=== PATIENT | female | born 1965 | race Caucasian/White ===

== ENCOUNTER 2016-04-28 14:38 | Emergency (ER) | payer OTHER ==
--- NOTE | 2016-04-28 15:26 | REP ---
RIGHT KNEE: Five views. HISTORY: Trauma. FINDINGS: Five views of the right knee demonstrate normal bones, joints, and soft tissues. No fracture or subluxation is seen. IMPRESSION: Negative right knee series. Signed by Eduardo Osborn MD 04/28/2016 04:01 P
[2016-04-28] MEDS ORDERED: NORCO, ANEXSIA 5/325MG TABLET (HYDROcodone/ACETAMINOPHEN) As Ordered ONE (16:38)
--- NOTE | 2016-04-28 16:43 | EDDOCDS ---
Physician Documentation [facility] Name: Lyndsay Landeros Age: 51 yrs Sex: Female : 1965 Arrival Date: 04/28/2016 Time: 14:38 Bed I7 / 29 Private MD: Ada Jay N. Disposition: 04/28/16 16:27 Discharged to Home/Self Care. Impression: Pain in right knee - Medial aspect, suspect medial meniscus vs MCL injury. - Condition is Stable. - Discharge Instructions: Knee Pain. - Prescriptions for [place] 5- 325 mg Oral Tablet - take 1 tablet by ORAL route every 6 hours As needed MDD: 4 tabs; 20 tablet. - Medication Reconciliation, Local Pharmacy Hours, Work Release Form - 2 day form. - Follow up: [facility]; When: 2 - 3 days; Reason: Recheck today's complaints, Continuance of care. Follow up: Emergency Department; When: As needed; Reason: Worsening of conditions. - Problem is new. - Symptoms have improved. Historical: - Allergies: codiene (rash. vomiting, nausea); - Home Meds: 1. aspirin 81 mg Oral chew 1 tab once daily (Last dose: 04/28/2016 07:00) 2. atenolol 25 mg Oral tab 1 tab once daily (Last dose: 04/28/2016 07:00) 3. Effexor Oral 175 mg daily (Last dose: 04/28/2016 07:00) 4. hydroxyzine HCl 100 mg Oral tab 100 mg nightly (Last dose: 04/27/2016) 5. Lipitor 20 mg Oral tab 1 tab nightly (Last dose: 04/27/2016) 6. omeprazole 40 mg Oral cpDR 1 cap 2 times per day (Last dose: 04/28/2016 07:00) 7. olanzapine 10 mg oral TbDL 1 tab once daily (Last dose: 04/28/2016 07:00) 8. promethazine 25 mg Oral tab 1 tab once daily as needed (Last dose: Unknown) 9. Xanax 0.5 mg Oral tab 1 tab 3 times per day (Last dose: 04/28/2016 07:00) - PMHx: Anxiety; Bipolar disorder; GERD; Hypercholesterolemia; Hypertension; - PSHx: Carpal Tunnel Repair- Right; right thumb trigger release; Tubal ligation; rt knee surgery; 4 surgeries left knee; repair laceration left wrist; - Social history: Smoking status: Patient uses tobacco products, heavy tobacco smoker. No barriers to communication noted, The patient speaks fluent Northern Irish. - Family history: Not pertinent. - : The pt / caregiver states he / she is not on anticoagulants. Home medication list is obtained from the patient. - Exposure Risk Screening:: None identified. 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 2 in. (157.48 cm) (R); Pain 7/10; 16:40 BP 155 / 79; Pulse 80; Resp 20; Temp 97.0; Pulse Ox 98% ; jam1 14:40 Body Mass Index 29.08 (72.12 kg, 157.48 cm) gr2 MDM: 14:49 Knee, Complete Ordered. EDMS 16:22 Crutches ordered. dk1 16:22 HYDROcodone-acetaminophen 5 mg-325 mg 1 tabs PO once ordered. dk1 16:22 Knee Immobilizer ordered. dk1 Administered Medications: 16:39 Drug: HYDROcodone-acetaminophen 1 tabs [hydrocodone 5 mg-acetaminophen 325 mg tablet (1 pml tabs)] Route: PO; 16:40 Follow up: Response: Confirmed pt not driving.; Med's dispensed home pml Signatures: Dispatcher [employer] Lorena Stout RN RN Jens Marc PALidia PABertinC dk1 Carlota Marcelo RN RN pml MTDD
--- NOTE | 2016-04-28 16:43 | EDDOCDS ---
Nurse's Notes [facility] Name: Lyndsay Landeros Age: 51 yrs Sex: Female : 1965 Arrival Date: 04/28/2016 Time: 14:38 Bed I7 / 29 Private MD: Ada Jay N. Diagnosis: Pain in right knee-Medial aspect, suspect medial meniscus vs MCL injury Presentation: 04/28 14:42 Presenting complaint: Patient states: slipped a couple of days ago twisting her right kpj knee, pain and swelling right knee. Adult Sepsis Screening: The patient does not have new or worsening altered mentation. Patient's respiratory rate is less than 22. Systolic blood pressure is greater than 100. Patient has a qSOFA score of 0- Negative Sepsis Screen. Suicide/Homicide risk assessment- the patient denies having any suicidal and/or homicidal ideations and does not present with any other emotional, behavioral or mental health complaints. 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 Transition of care: patient was not received from another setting of care. 14:42 Acuity: YOMAIRA Level 4 [facility] 14:42 Method Of Arrival: Walkin/Carried/Asstd [facility] Triage Assessment: 14:48 General: Appears uncomfortable, well nourished, well groomed, Behavior is appropriate [facility] for age, pleasant. Pain: Location: right knee Pain currently is 8 out of 10 on a pain scale. HIV screening NA for this visit Offered previously. Neurological: Level of Consciousness is awake, alert, Oriented to person, place, time. Respiratory: Airway is patent Respiratory effort is even, unlabored, Respiratory pattern is regular, symmetrical. Derm: Skin is pink, warm & dry. Musculoskeletal: Reports pain in right knee Pain is 8 out of 10 on a pain scale. 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 vomiting, nausea); - Home Meds: 1. aspirin 81 mg Oral chew 1 tab once daily (Last dose: 04/28/2016 07:00) 2. atenolol 25 mg Oral tab 1 tab once daily (Last dose: 04/28/2016 07:00) 3. Effexor Oral 175 mg daily (Last dose: 04/28/2016 07:00) 4. hydroxyzine HCl 100 mg Oral tab 100 mg nightly (Last dose: 04/27/2016) 5. Lipitor 20 mg Oral tab 1 tab nightly (Last dose: 04/27/2016) 6. omeprazole 40 mg Oral cpDR 1 cap 2 times per day (Last dose: 04/28/2016 07:00) 7. olanzapine 10 mg oral TbDL 1 tab once daily (Last dose: 04/28/2016 07:00) 8. promethazine 25 mg Oral tab 1 tab once daily as needed (Last dose: Unknown) 9. Xanax 0.5 mg Oral tab 1 tab 3 times per day (Last dose: 04/28/2016 07:00) - PMHx: Anxiety; Bipolar disorder; GERD; Hypercholesterolemia; Hypertension; - PSHx: Carpal Tunnel Repair- Right; right thumb trigger release; Tubal ligation; rt knee surgery; 4 surgeries left knee; repair laceration left wrist; - Social history: Smoking status: Patient uses tobacco products, heavy tobacco smoker. No barriers to communication noted, The patient speaks fluent [place]ambican. - Family history: Not pertinent. - : The pt / caregiver states he / she is not on anticoagulants. Home medication list is obtained from the patient. - Exposure Risk Screening:: None identified. Screenin:39 Screening information is obtained from the patient. Fall risk: No risks identified. pml Assistance ADL's: requires no assistance with activities of daily living. Abuse/DV Screen: The patient / caregiver reports he/she is: not in a situation that causes fear, pain or injury. Nutritional screening: No deficits noted. Advance Directives: Currently, there is no health care proxy. home support is adequate. Assessment: 16:39 General: Appears in no apparent distress, comfortable, Behavior is appropriate for age, pml cooperative. Pain: Location: right knee. Neurological: Level of Consciousness is awake, alert, Oriented to person, place, time. Cardiovascular: Capillary refill < 3 seconds. Respiratory: Airway is patent Respiratory effort is even, unlabored. GI: Abdomen is non- distended. Derm: Skin is pink, warm & dry. Musculoskeletal: Circulation, motion, and sensation intact Capillary refill < 3 seconds. Vital Signs: 14:40 BP 147 / 86; Pulse 85; Resp 18 S; Temp 96.9(O); Pulse Ox 98% on R/A; Weight 72.12 kg gr2 (R); Height 5 ft. 2 in. (157.48 cm) (R); Pain 7/10; 16:40 BP 155 / 79; Pulse 80; Resp 20; Temp 97.0; Pulse Ox 98% ; jam1 14:40 Body Mass Index 29.08 (72.12 kg, 157.48 cm) gr2 Vitals: 14:40 Log In Time: April 28, 2016 at 14:40. gr2 ED Course: 14:39 Patient visited by Bright Eubanks. gr2 14:39 Patient moved to Waiting gr2 14:40 Ada Jay is Private Physician. gr2 14:41 Patient visited by Bright Eubanks. gr2 14:41 Patient moved to Pre RCE gr2 14:44 Triage Initiated kpj 15:40 Mayra Lemon PA-C is PHCP. ef1 15:40 Margo Montalvo MD is Attending Physician. ef1 16:03 Jens De Leon PA-C is PHCP. dk1 16:03 Margo Montalvo MD is Attending Physician. dk1 16:03 Patient moved to Triage 2 srm 16:03 Patient moved to I7 / srm 16:08 Knee, Complete Returned. EDMS 16:12 Suyapa Weston,RN is Primary Nurse. jo3 16:17 Patient visited by Jens De Leon PA-C. dk1 16:27 [facility] is Referral Physician. dk1 16:39 The patient / caregiver is instructed regarding the plan of care and ED course. Patient pml has correct armband on for positive identification. Bed in low position. Side rails up X 1. 16:39 No IV's were initiated during this patient's visit. No procedures done that require pml assistance. Crutch training done. Knee immobilizer applied on right knee. Patient with positive distal sensation and brisk distal capillary refill after application. Administered Medications: 16:39 Drug: HYDROcodone-acetaminophen 1 tabs [hydrocodone 5 mg-acetaminophen 325 mg tablet (1 pml tabs)] Route: PO; 16:40 Follow up: Response: Confirmed pt not driving.; Med's dispensed home pml Order Results: Radiology Order: Knee, Complete Test: Knee, Complete REASON FOR EXAMINATION: Trauma; RIGHT KNEE: Five views.; ; HISTORY: Trauma.; ; FINDINGS: Five views of the right knee demonstrate normal bones, joints, and; soft tissues. No fracture or subluxation is seen.; ; IMPRESSION:; ; Negative right knee series.; ; ; ; Unreviewed; Outcome: 16:27 Discharge ordered by Provider. dk1 16:39 Discharge Assessment: Patient awake, alert and oriented x 3. No cognitive and/or pml functional deficits noted. Patient verbalized understanding of disposition instructions. patient administered narcotics - yes. Pt provided with safe discharge. The following High Risk Discharge criteria are identified: None. Discharged to home ambulatory, with family. Condition: good Condition: stable. Discharge instructions given to patient, Instructed on discharge instructions, follow up and referral plans. medication usage, no driving heavy equipment, Demonstrated understanding of instructions, medications, Pt was receptive of discharge instructions/ teaching. Prescriptions given X 1, Work note provided to patient. No special radiology studies were completed. Property sent home with patient. 16:42 Patient left the ED. pml Signatures: Dispatcher MedHost EDMS Lorena Ennis RN RN kpj Michelson, Staci, RN RN Kavitha King, MECHANICAL SYSTEM TECHNICIAN MECHANICAL SYSTEM TECHNICIAN jam1 Jens De Leon PA-C PABertinC dk1 Suyapa Weston RN RN jo3 Feola, Erica PA-C PA-C ef1 Carlota Marcelo RN RN pml Raymond, Gainslee gr2 MTDD
--- NOTE | 2016-04-30 17:42 | EDDOCDS ---
Physician Documentation [facility] Name: Lyndsay Landeros Age: 51 yrs Sex: Female : 1965 Arrival Date: 04/28/2016 Time: 14:38 Bed I7 / 29 Private MD: Ada Jay N. Disposition: 04/28/16 16:27 Discharged to Home/Self Care. Impression: Pain in right knee - Medial aspect, suspect medial meniscus vs MCL injury. - Condition is Stable. - Discharge Instructions: Knee Pain. - Prescriptions for [place] 5- 325 mg Oral Tablet - take 1 tablet by ORAL route every 6 hours As needed MDD: 4 tabs; 20 tablet. - Medication Reconciliation, Local Pharmacy Hours, Work Release Form - 2 day form. - Follow up: [facility]; When: 2 - 3 days; Reason: Recheck today's complaints, Continuance of care. Follow up: Emergency Department; When: As needed; Reason: Worsening of conditions. - Problem is new. - Symptoms have improved. Historical: - Allergies: codiene (rash. vomiting, nausea); - Home Meds: 1. aspirin 81 mg Oral chew 1 tab once daily (Last dose: 04/28/2016 07:00) 2. atenolol 25 mg Oral tab 1 tab once daily (Last dose: 04/28/2016 07:00) 3. Effexor Oral 175 mg daily (Last dose: 04/28/2016 07:00) 4. hydroxyzine HCl 100 mg Oral tab 100 mg nightly (Last dose: 04/27/2016) 5. Lipitor 20 mg Oral tab 1 tab nightly (Last dose: 04/27/2016) 6. omeprazole 40 mg Oral cpDR 1 cap 2 times per day (Last dose: 04/28/2016 07:00) 7. olanzapine 10 mg oral TbDL 1 tab once daily (Last dose: 04/28/2016 07:00) 8. promethazine 25 mg Oral tab 1 tab once daily as needed (Last dose: Unknown) 9. Xanax 0.5 mg Oral tab 1 tab 3 times per day (Last dose: 04/28/2016 07:00) - PMHx: Anxiety; Bipolar disorder; GERD; Hypercholesterolemia; Hypertension; - PSHx: Carpal Tunnel Repair- Right; right thumb trigger release; Tubal ligation; rt knee surgery; 4 surgeries left knee; repair laceration left wrist; - Social history: Smoking status: Patient uses tobacco products, heavy tobacco smoker. No barriers to communication noted, The patient speaks fluent Gibralt[place]. - Family history: Not pertinent. - : The pt / caregiver states he / she is not on anticoagulants. Home medication list is obtained from the patient. - Exposure Risk Screening:: None identified. 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 2 in. (157.48 cm) (R); Pain 7/10; 16:40 BP 155 / 79; Pulse 80; Resp 20; Temp 97.0; Pulse Ox 98% ; jam1 14:40 Body Mass Index 29.08 (72.12 kg, 157.48 cm) gr2 MDM: 14:49 Knee, Complete Ordered. EDMS 16:22 Crutches ordered. dk1 16:22 HYDROcodone-acetaminophen 5 mg-325 mg 1 tabs PO once ordered. dk1 16:22 Knee Immobilizer ordered. dk1 17:12 [facility] Payment Agreement was scanned into Protecode and attached to record. [facility] 17:12 Financial registration complete. [facility] 22:39 T-Sheet-- Draft Copy was scanned into Protecode and attached to record. klr Administered Medications: 16:39 Drug: HYDROcodone-acetaminophen 1 tabs [hydrocodone 5 mg-acetaminophen 325 mg tablet (1 pml tabs)] Route: PO; 16:40 Follow up: Response: Confirmed pt not driving.; Med's dispensed home pml Signatures: Dispatcher MedHost EDMS Lorena Ennis RN RN kpj Keyes, David, PA-C PA-C dk1 Carlota Marcelo RN RN pml Beck, Gabriela gjb Redder, Kathie klr The chart was reviewed and I authenticate all verbal orders and agree with the evaluation and treatment provided.Attachments: 17:12 [facility] Payment Agreement [facility] 22:39 T-Sheet-- Draft Copy klr Chart Complete MTDD
--- NOTE | 2016-04-30 17:42 | EDDOCDS ---
Nurse's Notes [facility] Name: Lyndsay Landeros Age: 51 yrs Sex: Female : 1965 Arrival Date: 04/28/2016 Time: 14:38 Bed I7 / 29 Private MD: Ada Jay N. Diagnosis: Pain in right knee-Medial aspect, suspect medial meniscus vs MCL injury Presentation: 04/28 14:42 Presenting complaint: Patient states: slipped a couple of days ago twisting her right kpj knee, pain and swelling right knee. Adult Sepsis Screening: The patient does not have new or worsening altered mentation. Patient's respiratory rate is less than 22. Systolic blood pressure is greater than 100. Patient has a qSOFA score of 0- Negative Sepsis Screen. Suicide/Homicide risk assessment- the patient denies having any suicidal and/or homicidal ideations and does not present with any other emotional, behavioral or mental health complaints. Status: Patient is not a director of social services or dependent. Transition of care: patient was not received from another setting of care. 14:42 Acuity: YOMAIRA Level 4 [facility] 14:42 Method Of Arrival: Walkin/Carried/Asstd [facility] Triage Assessment: 14:48 General: Appears uncomfortable, well nourished, well groomed, Behavior is appropriate [facility] for age, pleasant. Pain: Location: right knee Pain currently is 8 out of 10 on a pain scale. HIV screening NA for this visit Offered previously. Neurological: Level of Consciousness is awake, alert, Oriented to person, place, time. Respiratory: Airway is patent Respiratory effort is even, unlabored, Respiratory pattern is regular, symmetrical. Derm: Skin is pink, warm & dry. Musculoskeletal: Reports pain in right knee Pain is 8 out of 10 on a pain scale. 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 vomiting, nausea); - Home Meds: 1. aspirin 81 mg Oral chew 1 tab once daily (Last dose: 04/28/2016 07:00) 2. atenolol 25 mg Oral tab 1 tab once daily (Last dose: 04/28/2016 07:00) 3. Effexor Oral 175 mg daily (Last dose: 04/28/2016 07:00) 4. hydroxyzine HCl 100 mg Oral tab 100 mg nightly (Last dose: 04/27/2016) 5. Lipitor 20 mg Oral tab 1 tab nightly (Last dose: 04/27/2016) 6. omeprazole 40 mg Oral cpDR 1 cap 2 times per day (Last dose: 04/28/2016 07:00) 7. olanzapine 10 mg oral TbDL 1 tab once daily (Last dose: 04/28/2016 07:00) 8. promethazine 25 mg Oral tab 1 tab once daily as needed (Last dose: Unknown) 9. Xanax 0.5 mg Oral tab 1 tab 3 times per day (Last dose: 04/28/2016 07:00) - PMHx: Anxiety; Bipolar disorder; GERD; Hypercholesterolemia; Hypertension; - PSHx: Carpal Tunnel Repair- Right; right thumb trigger release; Tubal ligation; rt knee surgery; 4 surgeries left knee; repair laceration left wrist; - Social history: Smoking status: Patient uses tobacco products, heavy tobacco smoker. No barriers to communication noted, The patient speaks fluent Rwandan. - Family history: Not pertinent. - : The pt / caregiver states he / she is not on anticoagulants. Home medication list is obtained from the patient. - Exposure Risk Screening:: None identified. Screenin:39 Screening information is obtained from the patient. Fall risk: No risks identified. pml Assistance ADL's: requires no assistance with activities of daily living. Abuse/DV Screen: The patient / caregiver reports he/she is: not in a situation that causes fear, pain or injury. Nutritional screening: No deficits noted. Advance Directives: Currently, there is no health care proxy. home support is adequate. Assessment: 16:39 General: Appears in no apparent distress, comfortable, Behavior is appropriate for age, pml cooperative. Pain: Location: right knee. Neurological: Level of Consciousness is awake, alert, Oriented to person, place, time. Cardiovascular: Capillary refill < 3 seconds. Respiratory: Airway is patent Respiratory effort is even, unlabored. GI: Abdomen is non- distended. Derm: Skin is pink, warm & dry. Musculoskeletal: Circulation, motion, and sensation intact Capillary refill < 3 seconds. Vital Signs: 14:40 BP 147 / 86; Pulse 85; Resp 18 S; Temp 96.9(O); Pulse Ox 98% on R/A; Weight 72.12 kg gr2 (R); Height 5 ft. 2 in. (157.48 cm) (R); Pain 7/10; 16:40 BP 155 / 79; Pulse 80; Resp 20; Temp 97.0; Pulse Ox 98% ; jam1 14:40 Body Mass Index 29.08 (72.12 kg, 157.48 cm) gr2 Vitals: 14:40 Log In Time: April 28, 2016 at 14:40. gr2 ED Course: 14:39 Patient visited by Bright Eubanks. gr2 14:39 Patient moved to Waiting gr2 14:40 Ada Jay is Private Physician. gr2 14:41 Patient visited by Bright Eubanks. gr2 14:41 Patient moved to Pre RCE gr2 14:44 Triage Initiated kpj 15:40 Mayra Lemon PA-C is PHCP. ef1 15:40 Margo Montalvo MD is Attending Physician. ef1 16:03 Jens De Leon PA-C is PHCP. dk1 16:03 Margo Montalvo MD is Attending Physician. dk1 16:03 Patient moved to Triage 2 srm 16:03 Patient moved to I7 / srm 16:08 Knee, Complete Returned. EDMS 16:12 Suyapa Weston,RN is Primary Nurse. jo3 16:17 Patient visited by Jens De Leon PA-C. dk1 16:27 [facility] is Referral Physician. dk1 16:39 The patient / caregiver is instructed regarding the plan of care and ED course. Patient pml has correct armband on for positive identification. Bed in low position. Side rails up X 1. 16:39 No IV's were initiated during this patient's visit. No procedures done that require pml assistance. Crutch training done. Knee immobilizer applied on right knee. Patient with positive distal sensation and brisk distal capillary refill after application. 17:12 [facility] Payment Agreement was scanned into MemberPass and attached to record. gjb 22:39 T-Sheet-- Draft Copy was scanned into MemberPass and attached to record. klr Administered Medications: 16:39 Drug: HYDROcodone-acetaminophen 1 tabs [hydrocodone 5 mg-acetaminophen 325 mg tablet (1 pml tabs)] Route: PO; 16:40 Follow up: Response: Confirmed pt not driving.; Med's dispensed home pml Order Results: Radiology Order: Knee, Complete Test: Knee, Complete REASON FOR EXAMINATION: Trauma; RIGHT KNEE: Five views.; ; HISTORY: Trauma.; ; FINDINGS: Five views of the right knee demonstrate normal bones, joints, and; soft tissues. No fracture or subluxation is seen.; ; IMPRESSION:; ; Negative right knee series.; ; ; Signed by; Eduardo Osborn MD 04/28/2016 04:01 P; Outcome: 16:27 Discharge ordered by Provider. dk1 16:39 Discharge Assessment: Patient awake, alert and oriented x 3. No cognitive and/or pml functional deficits noted. Patient verbalized understanding of disposition instructions. patient administered narcotics - yes. Pt provided with safe discharge. The following High Risk Discharge criteria are identified: None. Discharged to home ambulatory, with family. Condition: good Condition: stable. Discharge instructions given to patient, Instructed on discharge instructions, follow up and referral plans. medication usage, no driving heavy equipment, Demonstrated understanding of instructions, medications, Pt was receptive of discharge instructions/ teaching. Prescriptions given X 1, Work note provided to patient. No special radiology studies were completed. Property sent home with patient. 16:42 Patient left the ED. pml Signatures: Dispatcher [employer] EDMS Lorena Ennis RN RN kpj Michelson, Staci, RN RN srm Murphy, Jane, DAMI WIRER MAINTENANCE jam1 Jens De Leon PA-C PABertinC dk1 Suyapa Weston RN RN jo3 Feola, Erica PA-C PA-C ef1 Carlota Marcelo RN RN pml Raymond, Gainslee gr2 Jazmine Olson Kathie klr Chart Complete MTDD
--- NOTE | 2016-04-30 17:42 | EDDOCDS ---
Physician Documentation [facility] Name: Lyndsay Landeros Age: 51 yrs Sex: Female : 1965 Arrival Date: 04/28/2016 Time: 14:38 Bed I7 / 29 Private MD: Ada Jay N. Disposition: 04/28/16 16:27 Discharged to Home/Self Care. Impression: Pain in right knee - Medial aspect, suspect medial meniscus vs MCL injury. - Condition is Stable. - Discharge Instructions: Knee Pain. - Prescriptions for Oran 5- 325 mg Oral Tablet - take 1 tablet by ORAL route every 6 hours As needed MDD: 4 tabs; 20 tablet. - Medication Reconciliation, Local Pharmacy Hours, Work Release Form - 2 day form. - Follow up: [facility]; When: 2 - 3 days; Reason: Recheck today's complaints, Continuance of care. Follow up: Emergency Department; When: As needed; Reason: Worsening of conditions. - Problem is new. - Symptoms have improved. Historical: - Allergies: codiene (rash. vomiting, nausea); - Home Meds: 1. aspirin 81 mg Oral chew 1 tab once daily (Last dose: 04/28/2016 07:00) 2. atenolol 25 mg Oral tab 1 tab once daily (Last dose: 04/28/2016 07:00) 3. Effexor Oral 175 mg daily (Last dose: 04/28/2016 07:00) 4. hydroxyzine HCl 100 mg Oral tab 100 mg nightly (Last dose: 04/27/2016) 5. Lipitor 20 mg Oral tab 1 tab nightly (Last dose: 04/27/2016) 6. omeprazole 40 mg Oral cpDR 1 cap 2 times per day (Last dose: 04/28/2016 07:00) 7. olanzapine 10 mg oral TbDL 1 tab once daily (Last dose: 04/28/2016 07:00) 8. promethazine 25 mg Oral tab 1 tab once daily as needed (Last dose: Unknown) 9. Xanax 0.5 mg Oral tab 1 tab 3 times per day (Last dose: 04/28/2016 07:00) - PMHx: Anxiety; Bipolar disorder; GERD; Hypercholesterolemia; Hypertension; - PSHx: Carpal Tunnel Repair- Right; right thumb trigger release; Tubal ligation; rt knee surgery; 4 surgeries left knee; repair laceration left wrist; - Social history: Smoking status: Patient uses tobacco products, heavy tobacco smoker. No barriers to communication noted, The patient speaks fluent Lithuanian. - Family history: Not pertinent. - : The pt / caregiver states he / she is not on anticoagulants. Home medication list is obtained from the patient. - Exposure Risk Screening:: None identified. 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 2 in. (157.48 cm) (R); Pain 7/10; 16:40 BP 155 / 79; Pulse 80; Resp 20; Temp 97.0; Pulse Ox 98% ; jam1 14:40 Body Mass Index 29.08 (72.12 kg, 157.48 cm) gr2 MDM: 14:49 Knee, Complete Ordered. EDMS 16:22 Crutches ordered. dk1 16:22 HYDROcodone-acetaminophen 5 mg-325 mg 1 tabs PO once ordered. dk1 16:22 Knee Immobilizer ordered. dk1 17:12 [facility] Payment Agreement was scanned into [employer] and attached to record. [facility] 17:12 Financial registration complete. [facility] 22:39 T-Sheet-- Draft Copy was scanned into [employer] and attached to record. klr Administered Medications: 16:39 Drug: HYDROcodone-acetaminophen 1 tabs [hydrocodone 5 mg-acetaminophen 325 mg tablet (1 pml tabs)] Route: PO; 16:40 Follow up: Response: Confirmed pt not driving.; Med's dispensed home pml Signatures: Dispatcher [employer] EDMS Lorena Ennis RN RN kpj Keyes, David, PA-C PA-C dk1 Carlota Marcelo RN RN pml Beck, Gabriela gjb Redder, Kathie klr The chart was reviewed and I authenticate all verbal orders and agree with the evaluation and treatment provided.Attachments: 17:12 [facility] Payment Agreement [facility] 22:39 T-Sheet-- Draft Copy klr Chart Complete MTDD
== END 2016-04-28 16:42 | disposition home or self-care (01) ==
LOC: M ED 14:38
DX: M25.561 Pain in right knee (principal); F41.9 Anxiety disorder, unspecified; F31.9 Bipolar disorder, unspecified; K21.9 Gastro-esophageal reflux disease without esophagitis; E78.00 Pure hypercholesterolemia, unspecified; I10 Essential (primary) hypertension; F17.200 Nicotine dependence, unspecified, uncomplicated; Z79.82 Long term (current) use of aspirin; Z79.899 Other long term (current) drug therapy; Z88.5 Allergy status to narcotic agent

== ENCOUNTER → 2016-05-03 | Outpatient (REF) | payer OTHER ==
[2016-05-03 11:52] LABS: URIC ACID 3.6 MG/DL (2.6-6.0)
== END ==
LOC: M LABDRAW1 10:55
PROVIDERS: ATTEND Orthopaedic Surgery
DX: M25.561 Pain in right knee (principal)

== ENCOUNTER → 2016-09-07 | Outpatient (CLI) | payer OTHER ==
[2016-09-07 14:15] LABS: ANION GAP 8 MEQ/L (8-16); BLOOD UREA NITROGEN 7 MG/DL (7-18); CALCIUM LEVEL 8.8 MG/DL (8.5-10.1); CARBON DIOXIDE LEVEL 26 MEQ/L (21-32); CHLORIDE LEVEL 105 MEQ/L (98-107); CREATININE FOR GFR 0.77 MG/DL (0.55-1.02); GLOMERULAR FILTRATION RATE > 60.0 (>51); GLUCOSE, FASTING 224 MG/DL (70-105); POTASSIUM SERUM 4.4 MEQ/L (3.5-5.1); SODIUM LEVEL 139 MEQ/L (136-145)
--- NOTE | 2016-09-08 08:49 | ECGEPIP ---
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
== END ==
LOC: M LAB 12:31
PROVIDERS: ATTEND Orthopaedic Surgery
DX: Z01.818 Encounter for other preprocedural examination (principal); I10 Essential (primary) hypertension

== ENCOUNTER → 2016-10-09 | Outpatient (REF) | payer OTHER ==
[2016-10-09 13:34] LABS: ALBUMIN 3.3 GM/DL (3.2-5.2); ALKALINE PHOSPHATASE 79 U/L (45-117); ALT/SGPT 19 U/L (12-78); ANION GAP 10 MEQ/L (8-16); AST/SGOT 11 U/L (15-37); BILIRUBIN,TOTAL 0.4 MG/DL (0.2-1.0); BLOOD UREA NITROGEN 11 MG/DL (7-18); CALCIUM LEVEL 8.6 MG/DL (8.5-10.1); CARBON DIOXIDE LEVEL 27 MEQ/L (21-32); CHLORIDE LEVEL 107 MEQ/L (98-107); CHOLESTEROL LEVEL 204 MG/DL (<200); CREATININE FOR GFR 0.77 MG/DL (0.55-1.02); GLOMERULAR FILTRATION RATE > 60.0 (>51); GLUCOSE, FASTING 131 MG/DL (70-105); POTASSIUM SERUM 3.5 MEQ/L (3.5-5.1); SODIUM LEVEL 144 MEQ/L (136-145); TOTAL PROTEIN 6.3 GM/DL (6.4-8.2); TRIGLYCERIDES LEVEL 344 MG/DL (<150)
[2016-10-09 13:46] LABS: BASO # 0.1 K/mm3 (0.0-0.2); BASO % 0.7 % (0.0-1.0); EOS # 0.2 K/mm3 (0.0-0.50); EOS % 2.1 % (0.0-3.0); LARGE UNSTAINED CELL # 0.1 K/mm3 (0.0-0.4); LARGE UNSTAINED CELL % 1.4 % (0.0-4.0); LYMPH # 2.8 K/mm3 (1.5-4.5); LYMPH % 27.3 % (24.0-44.0); MEAN CORPUSCULAR HEMOGLOBIN 29.1 pg (27.0-33.0); MEAN CORPUSCULAR HGB CONC 32.8 g/dl (32.0-36.5); MEAN CORPUSCULAR VOLUME 88.8 fl (80.0-96.0); MONO # 0.3 K/mm3 (0.0-0.8); MONO % 3.4 % (0.0-5.0); NEUTROPHILS # 6.2 K/mm3 (1.8-7.7); NEUTROPHILS % 65.1 % (36.0-66.0); PLATELET COUNT, AUTOMATED 337 k/mm3 (150-450); RED CELL DISTRIBUTION WIDTH 13.9 % (11.5-14.5); WHITE BLOOD COUNT 9.6 K/mm3 (4.0-10.0)
== END ==
LOC: M SFHCADAM 09:54
PROVIDERS: ATTEND Physician Assistant Medical
DX: Z23 Encounter for immunization (principal); K21.9 Gastro-esophageal reflux disease without esophagitis; E78.2 Mixed hyperlipidemia; R73.01 Impaired fasting glucose; E55.9 Vitamin D deficiency, unspecified

== ENCOUNTER → 2017-03-22 | Outpatient (REF) | payer OTHER ==
[2017-03-22 13:05] LABS: ALBUMIN 3.5 GM/DL (3.2-5.2); ALKALINE PHOSPHATASE 85 U/L (45-117); ALT/SGPT 12 U/L (12-78); ANION GAP 10 MEQ/L (8-16); AST/SGOT 9 U/L (7-37); BILIRUBIN,TOTAL 0.2 MG/DL (0.2-1.0); BLOOD UREA NITROGEN 12 MG/DL (7-18); CALCIUM LEVEL 9.1 MG/DL (8.5-10.1); CARBON DIOXIDE LEVEL 27 MEQ/L (21-32); CHLORIDE LEVEL 103 MEQ/L (98-107); CHOLESTEROL LEVEL 223 MG/DL (<200); CREATININE FOR GFR 0.71 MG/DL (0.55-1.02); GLOMERULAR FILTRATION RATE > 60.0 (>51); GLUCOSE, FASTING 173 MG/DL (70-105); POTASSIUM SERUM 4.3 MEQ/L (3.5-5.1); SODIUM LEVEL 140 MEQ/L (136-145); TRIGLYCERIDES LEVEL 248 MG/DL (<150)
[2017-03-22 13:17] LABS: ESTIMATED AVERAGE GLUCOSE 180 MG/DL (60-110)
== END ==
LOC: M SFHCADAM 08:37
DX: E78.1 Pure hyperglyceridemia (principal); E55.9 Vitamin D deficiency, unspecified; K21.9 Gastro-esophageal reflux disease without esophagitis; R73.01 Impaired fasting glucose

== ENCOUNTER → 2017-05-09 | Outpatient (REF) | payer OTHER | LOC: M SFHCADAM 15:05 | DX: F41.0 Panic disorder [episodic paroxysmal anxiety] (principal) | CPT/HCPCS: 80307 ==

== ENCOUNTER → 2017-06-20 | Outpatient (REF) | payer OTHER ==
[2017-06-20 13:01] LABS: ALBUMIN 3.7 GM/DL (3.2-5.2); ALBUMIN/GLOBULIN RATIO 1.12 (1.00-1.93); ALKALINE PHOSPHATASE 86 U/L (45-117); ALT/SGPT 17 U/L (12-78); ANION GAP 6 MEQ/L (8-16); AST/SGOT 12 U/L (7-37); BILIRUBIN,TOTAL 0.2 MG/DL (0.2-1.0); BLOOD UREA NITROGEN 16 MG/DL (7-18); CARBON DIOXIDE LEVEL 27 MEQ/L (21-32); CHLORIDE LEVEL 107 MEQ/L (98-107); GLOMERULAR FILTRATION RATE > 60.0 (>51); GLUCOSE, FASTING 151 MG/DL (70-100); SODIUM LEVEL 140 MEQ/L (136-145)
[2017-06-20 13:28] LABS: ESTIMATED AVERAGE GLUCOSE 186 MG/DL (60-110); HEMOGLOBIN A1c 8.1 %
== END ==
LOC: M SFHCADAM 08:34
DX: E11.9 Type 2 diabetes mellitus without complications (principal)
CPT/HCPCS: 83036

== ENCOUNTER → 2017-09-24 | Outpatient (CLI) | payer OTHER | LOC: M EKG 14:48 | DX: I10 Essential (primary) hypertension (principal); E11.9 Type 2 diabetes mellitus without complications; R53.83 Other fatigue | CPT/HCPCS: 71046 ==

== ENCOUNTER → 2017-09-30 | Outpatient (CLI) | payer OTHER ==
[2017-09-30 14:28] LABS: HEMOGLOBIN 10.6 g/dl (12.0-15.5); MEAN CORPUSCULAR HEMOGLOBIN 23.7 pg (27.0-33.0); MEAN CORPUSCULAR HGB CONC 31.2 g/dl (32.0-36.5); MEAN CORPUSCULAR VOLUME 75.9 fl (80.0-96.0); PLATELET COUNT, AUTOMATED 495 10^3/uL (150-450); RED BLOOD COUNT 4.48 10^6/uL (4.00-5.40); RED CELL DISTRIBUTION WIDTH 19.1 % (11.5-14.5); WHITE BLOOD COUNT 11.1 10^3/uL (4.0-10.0)
[2017-09-30 15:05] LABS: ALBUMIN 3.5 GM/DL (3.2-5.2); ALBUMIN/GLOBULIN RATIO 1.13 (1.00-1.93); ALKALINE PHOSPHATASE 89 U/L (45-117); ALT/SGPT 25 U/L (12-78); ANION GAP 9 MEQ/L (8-16); AST/SGOT 15 U/L (7-37); BILIRUBIN,TOTAL 0.2 MG/DL (0.2-1.0); BLOOD UREA NITROGEN 6 MG/DL (7-18); CALCIUM LEVEL 8.3 MG/DL (8.5-10.1); CARBON DIOXIDE LEVEL 25 MEQ/L (21-32); CHLORIDE LEVEL 107 MEQ/L (98-107); CHOLESTEROL LEVEL 197 MG/DL (<200); CHOLESTEROL RISK RATIO 4.104 (<5); CREATININE FOR GFR 0.71 MG/DL (0.55-1.30); GLOMERULAR FILTRATION RATE > 60.0 (>51); GLUCOSE, FASTING 114 MG/DL (70-100); HDL CHOLESTEROL 48 MG/DL (>40); LDL CHOLESTEROL 95.6 MG/DL (<100); NON-HDL-C 149 MG/DL; POTASSIUM SERUM 4.6 MEQ/L (3.5-5.1); SODIUM LEVEL 141 MEQ/L (136-145); THYROID STIMULATING HORMONE 0.858 uIU/ML (0.358-3.740); TOTAL PROTEIN 6.6 GM/DL (6.4-8.2); TRIGLYCERIDES LEVEL 267 MG/DL (<150)
[2017-09-30 15:18] LABS: TOTAL 25(OH) VITAMIN D 22.8 NG/ML (30.0-100.0)
[2017-09-30 15:47] LABS: ESTIMATED AVERAGE GLUCOSE 171 MG/DL (60-110); HEMOGLOBIN A1c 7.6 %
== END ==
LOC: M LAB 14:01
DX: R53.83 Other fatigue (principal); I10 Essential (primary) hypertension; E11.9 Type 2 diabetes mellitus without complications
CPT/HCPCS: 84443

== ENCOUNTER → 2018-01-12 | Outpatient (CLI) | payer OTHER | LOC: M ADAMS 15:22 | DX: M79.672 Pain in left foot (principal) | CPT/HCPCS: 73630 ==

== ENCOUNTER → 2018-02-04 | Outpatient (REF) | payer OTHER ==
[2018-02-04 17:21] LABS: BLOOD UREA NITROGEN 9 MG/DL (7-18)
[2018-02-04 17:21] LABS: CREATININE FOR GFR 0.81 MG/DL (0.55-1.30); GLOMERULAR FILTRATION RATE > 60.0 (>51)
== END ==
LOC: M LABDRAW1 15:47
DX: M47.812 Spondylosis without myelopathy or radiculopathy, cervical region (principal)
CPT/HCPCS: 82565

== ENCOUNTER → 2018-04-21 | Outpatient (REF) | payer OTHER | LOC: M LABDRAW1 17:14 | PROVIDERS: ATTEND Physician Assistant | DX: M50.321 Other cervical disc degeneration at C4-C5 level (principal) ==

== ENCOUNTER → 2018-11-28 | Outpatient (REF) | payer OTHER ==
[2018-11-28 15:54] LABS: ALBUMIN 3.5 GM/DL (3.2-5.2); ALT/SGPT 20 U/L (12-78); BILIRUBIN,TOTAL 0.2 MG/DL (0.2-1.0); BLOOD UREA NITROGEN 10 MG/DL (7-18); CALCIUM LEVEL 9.2 MG/DL (8.5-10.1); CARBON DIOXIDE LEVEL 27 MEQ/L (21-32); CHLORIDE LEVEL 105 MEQ/L (98-107); CHOLESTEROL LEVEL 240 MG/DL (<200); CHOLESTEROL RISK RATIO 5.217 (<5); CREATININE FOR GFR 0.78 MG/DL (0.55-1.30); FREE T4 0.84 NG/DL (0.76-1.46); GLOMERULAR FILTRATION RATE > 60.0 (>51); GLUCOSE, FASTING 164 MG/DL (70-100); HDL CHOLESTEROL 46 MG/DL (>40); LDL CHOLESTEROL 123 MG/DL (<100); NON-HDL-C 194 MG/DL; POTASSIUM SERUM 4.9 MEQ/L (3.5-5.1); SODIUM LEVEL 138 MEQ/L (136-145); TOTAL PROTEIN 6.7 GM/DL (6.4-8.2); TRIGLYCERIDES LEVEL 355 MG/DL (<150)
[2018-11-28 15:55] LABS: TOTAL 25(OH) VITAMIN D 18.8 NG/ML (30.0-100.0)
[2018-11-28 15:57] LABS: BASO # 0.1 10^3/uL (0.0-0.2); BASO % 0.7 % (0.0-1.0); EOS # 0.1 10^3/uL (0.0-0.5); EOS % 1.4 % (0.0-3.0); HEMATOCRIT 33.8 % (36.0-47.0); HEMOGLOBIN 10.1 g/dl (12.0-15.5); LYMPH # 2.5 10^3/uL (1.5-5.0); LYMPH % 27.5 % (24.0-44.0); MEAN CORPUSCULAR HEMOGLOBIN 22.7 pg (27.0-33.0); MEAN CORPUSCULAR HGB CONC 29.9 g/dl (32.0-36.5); MONO # 0.4 10^3/uL (0.0-0.8); MONO % 4.4 % (0.0-5.0); NEUTROPHILS % 65.7 % (36.0-66.0); PLATELET COUNT, AUTOMATED 456 10^3/uL (150-450); RED BLOOD COUNT 4.45 10^6/uL (4.00-5.40); WHITE BLOOD COUNT 9.1 10^3/uL (4.0-10.0)
[2018-11-28 16:19] LABS: CREATININE, URINE 72.3 MG/DL; MALB URINE SIEMENS < 5.0 MG/L; MAU/CREAT RATIO 6.9 MCG/MG (0.0-30.0)
[2018-11-28 16:23] LABS: HEMOGLOBIN A1c 8.4 %
== END ==
LOC: M SFHCSACK 09:40
PROVIDERS: ATTEND Physician Assistant
DX: E11.9 Type 2 diabetes mellitus without complications (principal); E55.9 Vitamin D deficiency, unspecified; E78.2 Mixed hyperlipidemia; J45.20 Mild intermittent asthma, uncomplicated; F41.9 Anxiety disorder, unspecified

== ENCOUNTER → 2019-01-21 | Outpatient (CLI) | payer OTHER ==
[~2019-01-21] MED LIST: ASPI81TA85 PO; ATEN25TA PO; CYCL5TAB PO; HYDR-3363 PO; HYDR1TAB33 PO; IBUP80TA PO; LIPI20TA PO; METF10004 PO; NEXI40CA PO; OLAN10TA2 PO; OMEP40CA97 PO; PROM25TA12 PO; VENL37TA PO; XANA1TAB2 PO
--- NOTE | 2019-01-21 22:47 | ECGEPIP ---
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
== END ==
LOC: M LAB 12:16
PROVIDERS: ATTEND Orthopaedic Surgery
DX: Z01.818 Encounter for other preprocedural examination (principal); M47.812 Spondylosis without myelopathy or radiculopathy, cervical region; I10 Essential (primary) hypertension

== ENCOUNTER → 2019-07-31 | Outpatient (REF) | payer OTHER ==
[~2019-07-31] MED LIST changes: +FERR325T18 PO; +MAG400TA PO
[2019-07-31 13:32] LABS: BASO # 0.1 10^3/uL (0.0-0.2); BASO % 0.6 % (0.0-1.0); EOS # 0.4 10^3/uL (0.0-0.5); EOS % 2.8 % (0.0-3.0); HEMATOCRIT 46.3 % (36.0-47.0); HEMOGLOBIN 15.1 g/dl (12.0-15.5); LYMPH # 2.3 10^3/uL (1.5-5.0); LYMPH % 17.8 % (24.0-44.0); MEAN CORPUSCULAR HEMOGLOBIN 29.4 pg (27.0-33.0); MEAN CORPUSCULAR HGB CONC 32.6 g/dl (32.0-36.5); MEAN CORPUSCULAR VOLUME 90.3 fl (80.0-96.0); MONO # 0.5 10^3/uL (0.0-0.8); MONO % 3.9 % (0.0-5.0); NEUTROPHILS # 9.6 10^3/uL (1.5-8.5); NEUTROPHILS % 74.5 % (36.0-66.0); PLATELET COUNT, AUTOMATED 377 10^3/uL (150-450); RED BLOOD COUNT 5.13 10^6/uL (4.00-5.40); WHITE BLOOD COUNT 12.9 10^3/uL (4.0-10.0)
[2019-07-31 14:06] LABS: TOTAL 25(OH) VITAMIN D 32.7 NG/ML (30.0-100.0)
[2019-07-31 14:18] LABS: ALBUMIN 3.7 GM/DL (3.2-5.2); ALT/SGPT 27 U/L (12-78); BILIRUBIN,TOTAL 0.2 MG/DL (0.2-1.0); BLOOD UREA NITROGEN 11 MG/DL (7-18); CALCIUM LEVEL 9.3 MG/DL (8.5-10.1); CARBON DIOXIDE LEVEL 27 MEQ/L (21-32); CHLORIDE LEVEL 104 MEQ/L (98-107); CHOLESTEROL LEVEL 175 MG/DL (<200); CHOLESTEROL RISK RATIO 4.487 (<5); CREATININE FOR GFR 0.74 MG/DL (0.55-1.30); FERRITIN 24 NG/ML (8-252); FREE T4 1.15 NG/DL (0.76-1.46); GLOMERULAR FILTRATION RATE > 60.0 (>51); GLUCOSE, FASTING 141 MG/DL (70-100); HDL CHOLESTEROL 39 MG/DL (>40); IRON (FE) 107 UG/DL (50-170); LDL CHOLESTEROL 86 MG/DL (<100); NON-HDL-C 136 MG/DL; POTASSIUM SERUM 4.4 MEQ/L (3.5-5.1); SODIUM LEVEL 138 MEQ/L (136-145); TOTAL PROTEIN 6.5 GM/DL (6.4-8.2); TRIGLYCERIDES LEVEL 250 MG/DL (<150)
[2019-07-31 16:09] LABS: HEMOGLOBIN A1c 7.4 %
== END ==
LOC: M LAB REF 11:50
PROVIDERS: ATTEND Physician Assistant
DX: E78.5 Hyperlipidemia, unspecified (principal); I10 Essential (primary) hypertension; Z00.00 Encounter for general adult medical examination without abnormal findings

== ENCOUNTER → 2019-11-10 | Outpatient (REF) | payer OTHER, MEDICAID ==
[~2019-11-10] MED LIST changes: -ASPI81TA85 PO; +ASPI81TA86 PO
[2019-12-29 11:03] LABS: BASO # 0.1 10^3/uL (0.0-0.2); BASO % 0.5 % (0.0-1.0); EOS # 0.1 10^3/uL (0.0-0.5); EOS % 1.2 % (0.0-3.0); HEMATOCRIT 45.2 % (36.0-47.0); HEMOGLOBIN 14.6 g/dl (12.0-15.5); LYMPH # 2.5 10^3/uL (1.5-5.0); LYMPH % 26.7 % (24.0-44.0); MEAN CORPUSCULAR HGB CONC 32.3 g/dl (32.0-36.5); MEAN CORPUSCULAR VOLUME 89.7 fl (80.0-96.0); MONO # 0.5 10^3/uL (0.0-0.8); NEUTROPHILS # 6.1 10^3/uL (1.5-8.5); NEUTROPHILS % 66.2 % (36.0-66.0); PLATELET COUNT, AUTOMATED 357 10^3/uL (150-450); RED BLOOD COUNT 5.04 10^6/uL (4.00-5.40); WHITE BLOOD COUNT 9.2 10^3/uL (4.0-10.0)
[2020-01-06 13:53] LABS: ALBUMIN 3.7 GM/DL (3.2-5.2); ALT/SGPT 23 U/L (12-78); BILIRUBIN,TOTAL 0.3 MG/DL (0.2-1.0); BLOOD UREA NITROGEN 14 MG/DL (7-18); CALCIUM LEVEL 9.2 MG/DL (8.5-10.1); CARBON DIOXIDE LEVEL 29 MEQ/L (21-32); CHLORIDE LEVEL 102 MEQ/L (98-107); CREATININE FOR GFR 0.71 MG/DL (0.55-1.30); GLOMERULAR FILTRATION RATE > 60.0 (>51); GLUCOSE, FASTING 141 MG/DL (70-100); POTASSIUM SERUM 4.3 MEQ/L (3.5-5.1); SODIUM LEVEL 138 MEQ/L (136-145); TOTAL PROTEIN 6.6 GM/DL (6.4-8.2)
[2020-01-06 13:55] LABS: HEMOGLOBIN A1c 7.8 %
== END ==
LOC: M LAB REF 12:39
PROVIDERS: ATTEND Physician Assistant
DX: I10 Essential (primary) hypertension (principal); E11.9 Type 2 diabetes mellitus without complications

== ENCOUNTER → 2020-01-28 | Outpatient (REF) | payer OTHER ==
[2020-01-28 14:08] LABS: BASO % 0.5 % (0.0-1.0); HEMATOCRIT 46.8 % (36.0-47.0); HEMOGLOBIN 14.8 g/dl (12.0-15.5); LYMPH # 2.5 10^3/uL (1.5-5.0); LYMPH % 24.3 % (24.0-44.0); MEAN CORPUSCULAR HEMOGLOBIN 27.6 pg (27.0-33.0); MEAN CORPUSCULAR HGB CONC 31.6 g/dl (32.0-36.5); MEAN CORPUSCULAR VOLUME 87.3 fl (80.0-96.0); MONO % 4.2 % (0.0-5.0); NEUTROPHILS # 7.3 10^3/uL (1.5-8.5); NEUTROPHILS % 69.4 % (36.0-66.0); PLATELET COUNT, AUTOMATED 362 10^3/uL (150-450); RED BLOOD COUNT 5.36 10^6/uL (4.00-5.40); WHITE BLOOD COUNT 10.5 10^3/uL (4.0-10.0)
[2020-01-28 14:09] LABS: BASO # 0.1 10^3/uL (0.0-0.2); EOS # 0.1 10^3/uL (0.0-0.5); MONO # 0.4 10^3/uL (0.0-0.8)
[2020-01-28 14:40] LABS: ALBUMIN 3.8 GM/DL (3.2-5.2); ALT/SGPT 22 U/L (12-78); BILIRUBIN,TOTAL 0.4 MG/DL (0.2-1.0); BLOOD UREA NITROGEN 14 MG/DL (7-18); CALCIUM LEVEL 9.6 MG/DL (8.5-10.1); CARBON DIOXIDE LEVEL 28 MEQ/L (21-32); CHLORIDE LEVEL 102 MEQ/L (98-107); CREATININE FOR GFR 0.81 MG/DL (0.55-1.30); GLOMERULAR FILTRATION RATE > 60.0 (>51); GLUCOSE, FASTING 140 MG/DL (70-100); POTASSIUM SERUM 4.9 MEQ/L (3.5-5.1); SODIUM LEVEL 137 MEQ/L (136-145); TOTAL PROTEIN 7.2 GM/DL (6.4-8.2)
[2020-01-28 15:03] LABS: HEMOGLOBIN A1c 7.5 %
== END ==
LOC: M LAB REF 12:50
PROVIDERS: ATTEND Physician Assistant
DX: I10 Essential (primary) hypertension (principal); E11.9 Type 2 diabetes mellitus without complications

== ENCOUNTER → 2020-02-01 | Outpatient (REF) | payer OTHER ==
[2020-02-01 18:50] LABS: MALB URINE SIEMENS 13.1 MG/L; MAU/CREAT RATIO 8.3 MCG/MG (0.0-30.0)
== END ==
LOC: M LAB REF 16:16
PROVIDERS: ATTEND Physician Assistant
DX: E11.9 Type 2 diabetes mellitus without complications (principal)

== ENCOUNTER → 2020-06-13 | Outpatient (REF) | payer OTHER ==
[~2020-06-13] MED LIST changes: -MAG400TA PO; +MAGN400T35 PO
[2020-06-13 12:49] LABS: ALT/SGPT 22 U/L (12-78); BILIRUBIN,TOTAL 0.2 MG/DL (0.2-1.0); BLOOD UREA NITROGEN 18 MG/DL (7-18); CALCIUM LEVEL 9.3 MG/DL (8.5-10.1); CARBON DIOXIDE LEVEL 28 MEQ/L (21-32); CHLORIDE LEVEL 104 MEQ/L (98-107); CHOLESTEROL LEVEL 198 MG/DL (<200); CREATININE FOR GFR 0.78 MG/DL (0.55-1.30); GLOMERULAR FILTRATION RATE > 60.0 (>51); GLUCOSE, FASTING 153 MG/DL (70-100); HDL CHOLESTEROL 45 MG/DL (>40); LDL CHOLESTEROL 88 MG/DL (<100); NON-HDL-C 153 MG/DL; POTASSIUM SERUM 4.7 MEQ/L (3.5-5.1); SODIUM LEVEL 139 MEQ/L (136-145); TRIGLYCERIDES LEVEL 324 MG/DL (<150)
[2020-06-13 15:06] LABS: HEMOGLOBIN A1c 7.3 %
== END ==
LOC: M LAB REF 11:07
PROVIDERS: ATTEND Physician Assistant
DX: E11.9 Type 2 diabetes mellitus without complications (principal)

== ENCOUNTER → 2022-02-20 | Outpatient (CLI) | payer OTHER ==
[~2022-02-20] MED LIST changes: -OLAN10TA2 PO; +OLAN1TAB20 PO; +OMEP40CA4 PO; -OMEP40CA97 PO
== END ==
LOC: M WHC 10:24
PROVIDERS: ATTEND Physician Assistant
DX: R92.1 Mammographic calcification found on diagnostic imaging of breast (principal); R92.8 Other abnormal and inconclusive findings on diagnostic imaging of breast

== ENCOUNTER → 2022-04-13 | Outpatient (CLI) | payer OTHER ==
[2022-04-13 12:57] LABS: HEMATOCRIT 44.7 % (36.0-47.0); MEAN CORPUSCULAR HEMOGLOBIN 27.6 pg (27.0-33.0); MEAN CORPUSCULAR HGB CONC 31.3 g/dl (32.0-36.5); MEAN CORPUSCULAR VOLUME 88.2 fl (80.0-96.0); PLATELET COUNT, AUTOMATED 397 10^3/uL (150-450); RED BLOOD COUNT 5.07 10^6/uL (4.00-5.40); WHITE BLOOD COUNT 10.7 10^3/uL (4.0-10.0)
[2022-04-13 13:35] LABS: ALBUMIN 3.8 G/DL (3.2-5.2); ALKALINE PHOSPHATASE 94 U/L (46-116); ALT/SGPT 16 U/L (7.0-40); AST/SGOT 15 U/L (<34); BILIRUBIN,TOTAL 0.3 MG/DL (0.3-1.2); BLOOD UREA NITROGEN 10 MG/DL (9-23); CALCIUM LEVEL 9.3 MG/DL (8.5-10.1); CARBON DIOXIDE LEVEL 28 MMOL/L (20-31); CHLORIDE LEVEL 103 MMOL/L (98-107); CHOLESTEROL LEVEL 159 MG/DL (<200); CHOLESTEROL RISK RATIO 3.84 (<5); CREATININE FOR GFR 0.71 MG/DL (0.55-1.30); GLOMERULAR FILTRATION RATE > 60.0 (>51); GLUCOSE, FASTING 141 MG/DL (60-100); HDL CHOLESTEROL 41.3 MG/DL (>40); LDL CHOLESTEROL 81.1 MG/DL (<100); NON-HDL-C 118 MG/DL; POTASSIUM SERUM 4.8 MMOL/L (3.5-5.1); SODIUM LEVEL 141 MMOL/L (136-145); TOTAL PROTEIN 6.3 G/DL (5.7-8.2); TRIGLYCERIDES LEVEL 183 MG/DL (<150)
== END ==
LOC: M WUC 09:58
PROVIDERS: ATTEND Physician Assistant
DX: I10 Essential (primary) hypertension (principal); Z11.59 Encounter for screening for other viral diseases; E11.9 Type 2 diabetes mellitus without complications

== ENCOUNTER 2022-06-08 11:37 | Emergency (ER) | payer OTHER ==
[~2022-06-08] VITALS: Ht 149.9 cm; Wt 67.7 kg
[2022-06-08] MEDS ORDERED: AUGMENTIN 875 MG TAB PO ONE (14:10)
[2022-06-08] MEDS ORDERED: AMOX875T2 PO (14:39)
[2022-06-08] MEDS ORDERED: LIDOCAINE 1% MDV 20ML VIAL INFIL ONE (14:50)
[2022-06-08 15:44] VITALS: BP 134/90
== END 2022-06-08 15:50 | disposition home or self-care (01) ==
LOC: M ED 11:37
DX: S51.851A Open bite of right forearm, initial encounter (principal); W54.0XXA Bitten by dog, initial encounter; Y92.009 Unspecified place in unspecified non-institutional (private) residence as the place of occurrence of the external cause; E11.9 Type 2 diabetes mellitus without complications; I10 Essential (primary) hypertension; F41.9 Anxiety disorder, unspecified; F32.A Depression, unspecified; K21.9 Gastro-esophageal reflux disease without esophagitis; F12.10 Cannabis abuse, uncomplicated; F17.200 Nicotine dependence, unspecified, uncomplicated; Z79.84 Long term (current) use of oral hypoglycemic drugs; Z79.899 Other long term (current) drug therapy

== ENCOUNTER → 2022-07-12 | Outpatient (REF) | payer OTHER ==
[~2022-07-12] MED LIST changes: +AMOX875T2 PO
[2022-07-12 18:02] LABS: CREATININE, URINE 27.6 MG/DL; MAU/CREAT RATIO 21.7 MCG/MG (0.0-30.0)
== END ==
LOC: M LAB REF 16:59
PROVIDERS: ATTEND Physician Assistant
DX: E11.9 Type 2 diabetes mellitus without complications (principal); Z12.4 Encounter for screening for malignant neoplasm of cervix; N73.9 Female pelvic inflammatory disease, unspecified

== ENCOUNTER → 2022-08-24 | Outpatient (CLI) | payer OTHER ==
[2022-08-24 13:14] LABS: HEMOGLOBIN A1c 6.8 % (4.0-6.0)
[2022-08-24 13:17] LABS: BLOOD UREA NITROGEN 9 MG/DL (9-23); CALCIUM LEVEL 9.2 MG/DL (8.5-10.1); CARBON DIOXIDE LEVEL 25 MMOL/L (20-31); CHLORIDE LEVEL 106 MMOL/L (98-107); GLOMERULAR FILTRATION RATE > 60.0 (>51); GLUCOSE, FASTING 100 MG/DL (60-100); POTASSIUM SERUM 4.3 MMOL/L (3.5-5.1); SODIUM LEVEL 141 MMOL/L (136-145)
== END ==
LOC: M WUC 09:48
PROVIDERS: ATTEND Physician Assistant
DX: E11.9 Type 2 diabetes mellitus without complications (principal)

== ENCOUNTER → 2022-11-08 | Outpatient (CLI) | payer MEDICAID, OTHER | LOC: M EKG 11:48 | PROVIDERS: ATTEND Family Medicine Addiction Medicine | DX: Z76.89 Persons encountering health services in other specified circumstances (principal); I44.0 Atrioventricular block, first degree; R94.31 Abnormal electrocardiogram [ECG] [EKG] ==

== ENCOUNTER 2022-12-05 20:21 | Emergency (ER) | payer OTHER ==
[~2022-12-05] VITALS: Ht 149.9 cm; Wt 57.1 kg
[~2022-12-05 20:21] MED LIST changes: +XANA2TAB2 PO
[2022-12-05 23:06] LABS: BASO # 0.1 10^3/uL (0.0-0.2); BASO % 0.9 % (0.0-1.0); EOS # 0.2 10^3/uL (0.0-0.5); HEMATOCRIT 43.8 % (36.0-47.0); HEMOGLOBIN 14.5 g/dl (12.0-15.5); LYMPH # 4.3 10^3/uL (1.5-5.0); LYMPH % 36.5 % (24.0-44.0); MEAN CORPUSCULAR HEMOGLOBIN 27.8 pg (27.0-33.0); MEAN CORPUSCULAR HGB CONC 33.1 g/dl (32.0-36.5); MEAN CORPUSCULAR VOLUME 84.1 fl (80.0-96.0); MONO # 0.8 10^3/uL (0.0-0.8); MONO % 6.8 % (2.0-8.0); NEUTROPHILS # 6.3 10^3/uL (1.5-8.5); NEUTROPHILS % 53.5 % (36.0-66.0); PLATELET COUNT, AUTOMATED 313 10^3/uL (150-450); RED BLOOD COUNT 5.21 10^6/uL (4.00-5.40); WHITE BLOOD COUNT 11.9 10^3/uL (4.0-10.0)
[2022-12-05 23:32] LABS: HCG, SERUM QUALITATIVE NEGATIVE (NEGATIVE)
[2022-12-05 23:36] LABS: ALKALINE PHOSPHATASE 68 U/L (46-116); ALT/SGPT 18 U/L (7.0-40); AST/SGOT 31 U/L (<34); BILIRUBIN,DIRECT 0.1 MG/DL (<0.4); BILIRUBIN,TOTAL 0.4 MG/DL (0.3-1.2); BLOOD UREA NITROGEN 25 MG/DL (9-23); CALCIUM LEVEL 6.7 MG/DL (8.5-10.1); CARBON DIOXIDE LEVEL 22 MMOL/L (20-31); CHLORIDE LEVEL 102 MMOL/L (98-107); CREATININE FOR GFR 1.73 MG/DL (0.55-1.30); GLOMERULAR FILTRATION RATE 32.3 (>51); GLUCOSE, FASTING 73 MG/DL (60-100); LIPASE 75 U/L (12-53); POTASSIUM SERUM 5.9 MMOL/L (3.5-5.1); SODIUM LEVEL 137 MMOL/L (136-145); TOTAL PROTEIN 6.7 G/DL (5.7-8.2)
[2022-12-06] MEDS ORDERED: NS 1,000 ML IV ONE (03:50)
[2022-12-06] MEDS ORDERED: hydrOXYzine 50 MG TAB PO STA (04:44)
[2022-12-06] MEDS ORDERED: metFORMIN (GLUCOPHAGE) 1000MG TABLET PO ONE (04:45)
[2022-12-06] MEDS ORDERED: OLANZapine 10 MG TAB PO ONE (04:45)
[2022-12-06] MEDS ORDERED: HYDR50TA70 PO (06:04)
[2022-12-06] MEDS ORDERED: MECL-86 PO (06:04)
[2022-12-06] MEDS ORDERED: ALPR2TAB3 PO (06:04)
[2022-12-06] MEDS ORDERED: METF10004 PO (06:06)
[2022-12-06] MEDS ORDERED: LEXA1TAB2 PO (06:06)
[2022-12-06] MEDS ORDERED: OMEP40CA5 PO (06:06)
[2022-12-06] MEDS ORDERED: FAMO1TAB11 PO (06:06)
[2022-12-06] MEDS ORDERED: ALBU2.5V10 INH (06:16)
[2022-12-06] MEDS ORDERED: FLON1SPR NARES (06:16)
[2022-12-06] MEDS ORDERED: ATOR80TA59 PO (06:16)
[2022-12-06] MEDS ORDERED: ATEN50TA2 PO (06:16)
[2022-12-06] MEDS ORDERED: PROM25TA12 PO (06:35)
[2022-12-06] MEDS ORDERED: HOME MED LIST COMPLETE! XX SCH (06:40)
[2022-12-06] MEDS ORDERED: ONDANSETRON 4MG 2ML VIAL IV ONE (07:25)
[2022-12-06 08:54] LABS: BASO # 0.1 10^3/uL (0.0-0.2); BASO % 1.2 % (0.0-1.0); EOS # 0.2 10^3/uL (0.0-0.5); EOS % 2.7 % (0.0-3.0); HEMOGLOBIN 13.2 g/dl (12.0-15.5); MEAN CORPUSCULAR VOLUME 84.7 fl (80.0-96.0); MONO # 0.4 10^3/uL (0.0-0.8); MONO % 4.8 % (2.0-8.0); NEUTROPHILS # 4.8 10^3/uL (1.5-8.5); NEUTROPHILS % 56.1 % (36.0-66.0); PLATELET COUNT, AUTOMATED 276 10^3/uL (150-450); RED BLOOD COUNT 4.72 10^6/uL (4.00-5.40); WHITE BLOOD COUNT 8.5 10^3/uL (4.0-10.0)
[2022-12-06] MEDS ORDERED: FAMOTIDINE 20 MG TAB PO SCH (09:00)
[2022-12-06] MEDS ORDERED: ATORVASTATIN 20 MG TAB PO SCH (09:00)
[2022-12-06] MEDS ORDERED: atenoloL 50 MG TAB PO SCH (09:00)
[2022-12-06] MEDS ORDERED: OMEPRAZOLE 20MG CAP PO SCH (09:00)
[2022-12-06] MEDS ORDERED: ESCITALOPRAM OXALATE 10 MG TAB (LEXAPRO) PO SCH (09:00)
[2022-12-06] MEDS ORDERED: PROMETHAZINE 25 MG TAB PO PRN (09:10)
[2022-12-06] MEDS ORDERED: MECLIZINE 25 MG TABLET PO PRN (09:10)
[2022-12-06] MEDS ORDERED: FLUTICASONE PROP 0.05% NASAL SPRAY 16 GM (FLONASE) NARES PRN (09:10)
[2022-12-06] MEDS ORDERED: ALBUTEROL SULFATE 2.5MG/0.5ML INH NEB SOLN INH PRN (09:10)
[2022-12-06] MEDS ORDERED: hydrOXYzine 50 MG TAB PO PRN (09:10)
[2022-12-06 09:35] LABS: CALCIUM LEVEL 6.4 MG/DL (8.5-10.1); CREATININE FOR GFR 1.32 MG/DL (0.55-1.30); GLOMERULAR FILTRATION RATE 44.2 (>51); POTASSIUM SERUM 3.6 MMOL/L (3.5-5.1)
[2022-12-06] MEDS ORDERED: ALPRAZolam 0.5 MG TAB PO SCH (10:00)
[2022-12-06 10:26] VITALS: BP 127/77
[2022-12-06] MEDS ORDERED: ISOVUE-370 76% 100ML VIAL As Ordered ONE (10:52)
[2022-12-06 11:30] VITALS: O2SAT 98
[2022-12-06 11:39] VITALS: BP 127/75
[2022-12-06 11:44] VITALS: TEMP 97.6
== END 2022-12-06 11:46 | disposition home or self-care (01) ==
LOC: M ED 20:21
DX: N17.9 Acute kidney failure, unspecified (principal); R53.1 Weakness; E86.0 Dehydration; F32.A Depression, unspecified; H81.4 Vertigo of central origin; Z79.52 Long term (current) use of systemic steroids; Z79.02 Long term (current) use of antithrombotics/antiplatelets; Z79.899 Other long term (current) drug therapy
CPT/HCPCS: 36415; 74177; 76775; 80048; 80076; 81001; 83690; 84703; 85025; 87086; 87635; 96360; 96361; 97116; 97161; 99285; Q9967

== ENCOUNTER → 2023-04-29 | Outpatient (REF) | payer OTHER ==
[~2023-04-29] MED LIST changes: +ALBU2.5V10 INH; +ALPR2TAB3 PO; +ATEN50TA2 PO; +ATOR80TA59 PO; +FAMO1TAB11 PO; +FLON1SPR NARES; +HYDR50TA70 PO; +LEXA1TAB2 PO; +MECL-86 PO; +OMEP40CA5 PO
[2023-04-29 17:01] LABS: HEMATOCRIT 42.1 % (36.0-47.0); HEMOGLOBIN 13.8 g/dl (12.0-15.5); MEAN CORPUSCULAR HEMOGLOBIN 28.9 pg (27.0-33.0); MEAN CORPUSCULAR HGB CONC 32.8 g/dl (32.0-36.5); MEAN CORPUSCULAR VOLUME 88.1 fl (80.0-96.0); PLATELET COUNT, AUTOMATED 402 10^3/uL (150-450); RED BLOOD COUNT 4.78 10^6/uL (4.00-5.40); WHITE BLOOD COUNT 11.2 10^3/uL (4.0-10.0)
[2023-04-29 17:27] LABS: ALBUMIN 3.5 G/DL (3.2-5.2); ALKALINE PHOSPHATASE 75 U/L (46-116); ALT/SGPT 20 U/L (7.0-40); AST/SGOT 23 U/L (<34); BILIRUBIN,TOTAL 0.2 MG/DL (0.3-1.2); BLOOD UREA NITROGEN 11 MG/DL (9-23); CALCIUM LEVEL 8.6 MG/DL (8.5-10.1); CARBON DIOXIDE LEVEL 28 MMOL/L (20-31); CHLORIDE LEVEL 105 MMOL/L (98-107); CHOLESTEROL LEVEL 189 MG/DL (<200); CHOLESTEROL RISK RATIO 4.28 (<5); CREATININE FOR GFR 0.64 MG/DL (0.55-1.30); GLOMERULAR FILTRATION RATE > 60.0 (>51); GLUCOSE, FASTING 132 MG/DL (60-100); HDL CHOLESTEROL 44.1 MG/DL (>40); LDL CHOLESTEROL 100.7 MG/DL (<100); NON-HDL-C 144.9 MG/DL; SODIUM LEVEL 139 MMOL/L (136-145); TOTAL PROTEIN 6.3 G/DL (5.7-8.2); TRIGLYCERIDES LEVEL 221 MG/DL (<150)
[2023-04-29 17:42] LABS: HEMOGLOBIN A1c 7.8 % (4.0-6.0)
== END ==
LOC: M LAB REF 16:36
PROVIDERS: ATTEND Physician Assistant
DX: E11.9 Type 2 diabetes mellitus without complications (principal)

== ENCOUNTER → 2023-08-21 | Outpatient (REF) | payer OTHER ==
[2023-08-21 17:37] LABS: CREATININE, URINE 25.9 MG/DL; MALB URINE SIEMENS < 3.0 MG/L; MAU/CREAT RATIO 11.5 MCG/MG (0.0-30.0)
== END ==
LOC: M LAB REF 16:23
PROVIDERS: ATTEND Physician Assistant
DX: E11.9 Type 2 diabetes mellitus without complications (principal)

== ENCOUNTER → 2023-11-07 | Outpatient (REF) | payer OTHER ==
[2023-11-07 16:36] LABS: HEMATOCRIT 38.8 % (36.0-47.0); HEMOGLOBIN 12.7 g/dl (12.0-15.5); MEAN CORPUSCULAR HEMOGLOBIN 28.2 pg (27.0-33.0); MEAN CORPUSCULAR HGB CONC 32.7 g/dl (32.0-36.5); PLATELET COUNT, AUTOMATED 349 10^3/uL (150-450); RED BLOOD COUNT 4.51 10^6/uL (4.00-5.40); WHITE BLOOD COUNT 11.1 10^3/uL (4.0-10.0)
[2023-11-07 17:04] LABS: HEMOGLOBIN A1c 7.1 % (4.0-6.0)
[2023-11-07 17:08] LABS: ALBUMIN 3.5 G/DL (3.2-5.2); ALKALINE PHOSPHATASE 72 U/L (46-116); ALT/SGPT 27 U/L (7.0-40); AST/SGOT 18 U/L (<34); BILIRUBIN,TOTAL 0.2 MG/DL (0.3-1.2); BLOOD UREA NITROGEN 18 MG/DL (9-23); CALCIUM LEVEL 8.5 MG/DL (8.5-10.1); CARBON DIOXIDE LEVEL 24 MMOL/L (20-31); CHLORIDE LEVEL 109 MMOL/L (98-107); CHOLESTEROL LEVEL 143 MG/DL (<200); CHOLESTEROL RISK RATIO 2.93 (<5); CREATININE FOR GFR 0.61 MG/DL (0.55-1.30); GLOMERULAR FILTRATION RATE > 60.0 (>51); GLUCOSE, FASTING 108 MG/DL (60-100); HDL CHOLESTEROL 48.7 MG/DL (>40); LDL CHOLESTEROL 51.5 MG/DL (<100); NON-HDL-C 94.3 MG/DL; POTASSIUM SERUM 4.8 MMOL/L (3.5-5.1); SODIUM LEVEL 139 MMOL/L (136-145); TOTAL PROTEIN 5.8 G/DL (5.7-8.2); TRIGLYCERIDES LEVEL 214 MG/DL (<150)
== END ==
LOC: M LAB REF 16:11
PROVIDERS: ATTEND Physician Assistant
DX: E11.9 Type 2 diabetes mellitus without complications (principal)

== ENCOUNTER → 2024-03-16 | Outpatient (CLI) | payer OTHER ==
[~2024-03-16] MED LIST changes: -CYCL5TAB PO; +CYCL5TAB4 PO
== END ==
LOC: M RAD 02-12 06:54
PROVIDERS: ATTEND Orthopaedic Surgery
DX: M47.894 Other spondylosis, thoracic region (principal); R93.89 Abnormal findings on diagnostic imaging of other specified body structures
CPT/HCPCS: 78315; A9503

== ENCOUNTER → 2024-05-11 | Outpatient (CLI) | payer OTHER ==
[~2024-05-11] MED LIST changes: +LIDOCAINE 1% MDV 20ML VIAL As Ordered ONE
[2024-05-11 12:40] VITALS: BP 156/88; TEMP 98.4; O2SAT 98
== END ==
LOC: M IRPRO 12:27
PROVIDERS: ATTEND Physician Assistant
DX: M54.6 Pain in thoracic spine (principal)

== ENCOUNTER → 2024-10-08 | Outpatient (CLI) | payer OTHER ==
[~2024-10-08] MED LIST changes: -LIDOCAINE 1% MDV 20ML VIAL As Ordered ONE
== END ==
LOC: M WHC 10:50
PROVIDERS: ATTEND Physician Assistant
DX: Z12.31 Encounter for screening mammogram for malignant neoplasm of breast (principal); R92.323 Mammographic fibroglandular density, bilateral breasts